=== PATIENT | female | born 1995 | race Caucasian/White ===

== ENCOUNTER 2021-03-09 12:54 | Emergency (ER) | payer BC ==
[~2021-03-09] VITALS: Ht 180.3 cm; Wt 120.4 kg
[2021-03-09] MEDS ORDERED: oxyCODONE IR 5 MG TABLET PO ONE (13:45)
--- NOTE | 2021-03-09 15:19 | RAD ---
MR LUMBAR SPINE WO [id number] Date: 03/09/2021 1:54 PM Indication: back pain, urinary incontinence, r/o cauda equina Comparison: None. Technique: Multi-planar multi-weighted magnetic resonance imaging of the lumbar spine was performed w ithout intravenous contrast using the standard lumbar spine protocol. FINDINGS: The lumbar spine is normally aligned. No acute fracture. Mild multilevel degenerative disc desiccatio n and disc height loss. Bone marrow signal intensity is normal. The conus terminates at a normal level. No abnormal signal is seen within the visualized distal spina l cord. No clumping of intrathecal nerve roots. No soft tissue abnormality in the visualized abdomen or pelvis. T12-L1: No disc bulge. No facet arthropathy. No significant spinal stenosis or neural foraminal narro wing. L1-L2: No disc bulge. No facet arthropathy. No significant spinal stenosis or neural foraminal narrow ing. L2-L3: Disc bulge with annular tear. Mild facet arthropathy. No significant spinal stenosis or neural foraminal narrowing. L3-L4: Disc bulge. Mild facet arthropathy. No significant spinal stenosis or neural foraminal narrowi ng. L4-L5: Disc bulge with annular tear. Mild facet arthropathy. No significant spinal stenosis or neural foraminal narrowing. L5-S1: Disc bulge with annular tear and right paracentral protrusion which moderately narrows the rig ht lateral recess and displaces the descending right S1 nerve root. Mild facet arthropathy. Mild spin al stenosis. Mild bilateral neural foraminal narrowing. IMPRESSION: Lumbar spondylosis, worst at L5-S1 where a disc protrusion narrows the right lateral recess and displ aces the right S1 nerve root. No severe spinal canal stenosis. Electronically signed by: Dionicio Gruber MD (03/09/2021 3:17 PM) [facility]
--- NOTE | 2021-03-09 15:30 | PHYS DOC ---
Past Medical History Additional Past Medical Histor: fatty liver, PCOD, IBS, chronic back pain Past Surgical History: Other Additional Past Surgical Histo: EGD, colonoscopy, myringotomy Smoking Status: Never Smoker Alcohol Use: Rarely General Adult EDM: Chief Complaint: BACK PAIN - NO INJURY HPI: HPI: Patient is a 25 year old female with history of chronic back pain who presents with acute on chronic worsening of her back pain yesterday that started while she was walking. Radiates down the right leg. Associated with numbness sensation. Worsened throughout the day and then last night began having episodes of urinary incontinence. Has had several episodes since this started. Denies fever/chills, no steroids or immunosuppression, no IVDU, no previous history of back surgery. She does feel that her right leg is subjectively weaker than her left since the pain worsened. No bowel incontinence or retention. No saddle anesthesia. Review of Systems: Review of Systems: Constitutional: Denies fever or chills. [] Eyes: Denies change in visual acuity. [] HENT: Denies nasal congestion or sore throat. [] Respiratory: Denies cough or shortness of breath. [] Cardiovascular: Denies chest pain or edema. [] GI: Denies abdominal pain, nausea, vomiting, bloody stools or diarrhea. [] : Denies dysuria. Reports urinary incontinence [] Musculoskeletal: Reports back pain Integument: Denies rash. [] Neurologic: Denies headache, focal weakness or sensory changes. [] Endocrine: Denies polyuria or polydipsia. [] Lymphatic: Denies swollen glands. [] Psychiatric: Denies depression or anxiety. [] Heart Score: C/O Chest Pain: No Current Medications: Current Medications Medications (Trade) Dose Ordered Sig/Monie Start Time Stop Time Status Last Admin Dose Admin Oxycodone HCl (Roxicodone) 5 mg 1X ONCE 03/09/21 13:45 03/09/21 13:46 DC 03/09/21 13:45 5 MG Allergies: Allergies: Allergies Coded Allergies Type Severity Reaction Last Updated Verified No Known Drug Allergies 03/09/21 No Physical Exam: PE: Constitutional: Well developed, well nourished, no acute distress, non-toxic appearance. [] HENT: Normocephalic, atraumatic, bilateral external ears normal, oropharynx moist, no oral exudates, nose normal. [] Eyes: PERRLA, EOMI, conjunctiva normal, no discharge. [] Neck: Normal range of motion, no tenderness, supple, no stridor. [] Cardiovascular:Heart rate regular rhythm, no murmur [] Lungs & Thorax: Bilateral breath sounds clear to auscultation [] Abdomen: Bowel sounds normal, soft, no tenderness, no masses, no pulsatile masses. [] Skin: Warm, dry, no erythema, no rash. [] Back: No tenderness, no CVA tenderness. [] Extremities: No tenderness, no cyanosis, no clubbing, ROM intact, no edema. [] Neurologic: Alert and oriented X 3, normal motor function, normal sensory function, no focal deficits noted. [] Specifically 5/5 strength in: Left hip flexion, hip adduction, knee flexion/extension, plantar flexion/dorsiflexion of the ankle, and dorsiflexion of the great toe. 4+/5 strength (although I expect some limitation due to pain) in right hip flexion, hip adduction, knee flexion/extension, plantar flexion/dorsiflexion of the ankle, and dorsiflexion of the great toe. Rectal tone intact. Psychologic: Affect normal, judgement normal, mood normal. [] Current Patient Data: Labs: Laboratory Tests Test 03/09/21 13:15 POC Urine HCG, Qualitative Hcg negative (Negative) Vital Signs: Vital Signs Date Time Temp Pulse Resp B/P (MAP) Pulse Ox O2 Delivery O2 Flow Rate FiO2 03/09/21 13:45 20 97 Room Air 03/09/21 13:42 75 152/99 (116) 03/09/21 13:10 98.3 98.3 EKG: EKG: [] Radiology/Procedures: Radiology/Procedures: [] Impression: [facility] [address] [place] [address] IMAGING REPORT Signed PATIENT: VALDEMAR TOBAR ACCOUNT: [id number] : 1995 LOCATION: ER AGE: 25 SEX: F EXAM STATUS: REG ER ORD. PHYSICIAN: ANDER HOLMAN MD REASON: back pain, urinary incontinence, r/o cauda equina PROCEDURE: LUMBAR SPINE WO CONTRAST MR LUMBAR SPINE WO -[id number] Date: 03/09/2021 1:54 PM Indication: back pain, urinary incontinence, r/o cauda equina Comparison: None. Technique: Multi-planar multi-weighted magnetic resonance imaging of the lumbar spine was performed without intravenous contrast using the standard lumbar spine protocol. FINDINGS: The lumbar spine is normally aligned. No acute fracture. Mild multilevel degenerative disc desiccation and disc height loss. Bone marrow signal intensity is normal. The conus terminates at a normal level. No abnormal signal is seen within the visualized distal spinal cord. No clumping of intrathecal nerve roots. No soft tissue abnormality in the visualized abdomen or pelvis. T12-L1: No disc bulge. No facet arthropathy. No significant spinal stenosis or neural foraminal narrowing. L1-L2: No disc bulge. No facet arthropathy. No significant spinal stenosis or ne ural foraminal narrowing. L2-L3: Disc bulge with annular tear. Mild facet arthropathy. No significant spinal stenosis or neural foraminal narrowing. L3-L4: Disc bulge. Mild facet arthropathy. No significant spinal stenosis or neural foraminal narrowing. L4-L5: Disc bulge with annular tear. Mild facet arthropathy. No significant spinal stenosis or neural foraminal narrowing. L5-S1: Disc bulge with annular tear and right paracentral protrusion which moderately narrows the right lateral recess and displaces the descending right S1 nerve root. Mild facet arthropathy. Mild spinal stenosis. Mild bilateral neural foraminal narrowing. IMPRESSION: Lumbar spondylosis, worst at L5-S1 where a disc protrusion narrows the right lateral recess and displaces the right S1 nerve root. No severe spinal canal stenosis. Electronically signed by: Duane Gruber MD (03/09/2021 3:17 PM) [facility] DICTATED and SIGNED BY: DUANE GRUBER MD DATE: 03/09/21 [id number] 0 Course & Med Decision Making: Course & Med Decision Making Pertinent Labs and Imaging studies reviewed. (See chart for details) Patient a 25-year-old female with history of chronic low back pain that presents with acute worsening of her right low back pain with radicular symptoms. Reported urinary incontinence. Strength on the right side was 4+/5 diffusely on examination which I suspect is due to pain rather than a neuro deficit. Rectal tone was intact. Given the urinary incontinence there is concern for potential cauda equina, so MRI of the lumbar spine was obtained. Did show some nerve root compression at S1 on the right which could explain her radicular symptoms. This was due to a disc bulge. Discussed with neurosurgery, who recommends close outpatient follow-up. Will be given a short course of oxycodone in addition to Tylenol and ibuprofen. Dragon Disclaimer: Dragon Disclaimer: This electronic medical record was generated, in whole or in part, using a voice recognition dictation system. Departure Departure Impression: Primary Impression: Lumbar disc disease with radiculopathy Disposition: HOME / SELF CARE / HOMELESS Condition: STABLE Referrals: RAEANN ARMIJO MD (PCP) EMILY THOMAS MD Schedule follow-up appointment with the neurosurgery offices for treatment of your low back pain. Patient Instructions: Back Pain, Adult Additional Instructions: You need to follow-up with the neurosurgery team for consideration of other treatments such as steroid injections. For pain tylenol and ibuprofen are best used on a schedule. Please aslternate between the two. -Tylenol 1000 mg every 6 hours (do not exceed 4000 mg in one day) -Ibuprofen 400 mg every 6 hours. Take with food. Do not take for more than 1 week. For pain not controlled by the above you can take: -Oxycodone 5 mg every 4 hours as needed. This is a narcotic medication and can make you tired and impaired. Do not drive or operate machinery while taking oxycodone. It can also make you consitpated so please consider taking docusate and miralax (as directed by over the counter directions) to prevent constipation. Please try to take as little oxycodone as possible and wean yourself off as soon as you are able because it is an addictive medication. Scripts Oxycodone HCl (Oxycodone HCl) 5 Mg Tablet 5 MG PO PRN Q4-6HRS PRN for PAIN for 3 Days, #15 TAB 0 Refills Prov: ANDER HOLMAN MD 03/09/21 ANDER HOLMAN MD Mar 09, 2021 15:30
[2021-03-09] MEDS ORDERED: OXYC5TAB2 PO (16:00)
[2021-03-09 16:16] VITALS: BP 147/86
[2021-04-02] MEDS ORDERED: METF500T16 PO (13:53)
[2021-04-02] MEDS ORDERED: METO50TA4 PO (13:53)
[2021-04-02] MEDS ORDERED: BUPR300T92 PO (13:53)
[2021-04-02] MEDS ORDERED: CYCL10TA19 PO (13:53)
[2021-04-02] MEDS ORDERED: SPIR100T4 PO (13:53)
== END 2021-03-09 16:21 | disposition home or self-care (01) ==
LOC: ER 12:54
DX: M47.27 Other spondylosis with radiculopathy, lumbosacral region (principal); G89.29 Other chronic pain; K58.9 Irritable bowel syndrome, unspecified
CPT/HCPCS: 72148; 81025; 99284

== ENCOUNTER → 2021-04-02 | Outpatient (CLI) | payer BC ==
[2021-03-09 16:16] VITALS: BP 147/86
[~2021-04-02] MED LIST: BUPR300T92 PO; CYCL10TA19 PO; METF500T16 PO; METO50TA4 PO; OXYC5TAB2 PO; SPIR100T4 PO
--- NOTE | 2021-04-02 16:43 | PDOC1 ---
INITIAL PAIN CONSULT DATE OF SERVICE: DOS: DATE: 04/02/21 TIME: 16:36 CHIEF COMPLAINT: Chief Complaint: Low back and right lower extremity pain HISTORY OF PRESENT ILLNESS: 25-year-old female presents history of pain low back right lower extremity for approximately 1 month, not the result of any specific injury or accident that she is aware of, but getting worse with time and with standing weightbearing walking changing positions is been awakened from sleep at least 2-4 times a night patient reports it can affect her bowel bladder control no incontinence but significant increase in frequency and urgency. Patient reports it does affect her ability to walk to have difficulty changing positions standing getting up from a seated position patient reports the pain is in the low back right lower extremity posterior gluteus lateral thigh posterior calf posterior lower leg. Patient reports that sharp and stabbing radiating the leg changes during the day worse with activity better with sitting or laying down patient is done physical therapy also chiropractic treatment she is currently doing the stretching exercises as well from the chiropractor also has tried oxycodone as well as taking ibuprofen both which of these do help she tried cyclobenzaprine as well which has not been helpful. Patient reports her disability rating 0-10 10 being the worst, it is 5 within the home was possibilities 9 with recreation 10 with social activity occupation 7 with self-care and/support activities. Patient had an MRI scan lumbar spine showing L5-S1 disc bulge with annular tear and right paracentral protrusion which moderately narrows the right lateral recess and displaces the descending right S1 nerve root. Patient reports significant fatigability the right lower extremity but no overt motor loss. PAST MEDICAL HISTORY: PMH: Hypertension, hearing loss PREVIOUS SURGERIES: Past Surgical Hx: Ear tubes CURRENT MEDICATIONS: Current Meds: Active Scripts Medications Dose Route/Sig Max Daily Dose Days Date Category Metformin Hcl 500 Mg Tablet 500 Mg PO DAILY 04/02/21 Reported Bupropion Xl (Bupropion Hcl) 300 Mg Tab.er.24h 1 Tab PO DAILYWBKFT 04/02/21 Reported Spironolactone 100 Mg Tablet 1 Tab PO DAILY 04/02/21 Reported Toprol XL (Metoprolol Succinate) 50 Mg Tab.er.24h 50 Mg PO DAILY 04/02/21 Reported Cyclobenzaprine Hcl 10 Mg Tablet 1 Tab PO QHS 04/02/21 Reported Oxycodone HCl 5 Mg Tablet 5 Mg PO PRN Q4-6HRS PRN 3 03/09/21 Rx ALLERGIES; Allergies: Coded Allergies: No Known Drug Allergies (Unverified , 03/09/21) FAMILY HISTORY: Family Hx: Arthritis SOCIAL HISTORY: Social Hx: Patient is alcohol very rarely does not use any illegal illicit recreational drugs does not smoke is single lives locally has 1 nephew living with her and 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 REVIEW OF SYSTEMS: ROS: Positive for those items mentioned in history of present illness, all systems are reviewed, otherwise negative ,and are complete full and well-documented on patient's chart. PHYSICAL EXAM: VS: Blood pressure is 144/94 pulse 80 respirations 18 temperature 98.0 F height is 5 feet 10 inches weight is 270 pounds PE: PHYSICAL EXAMINATION: GENERAL: The patient is awake, alert, oriented, appropriate, very pleasant in demeanor HEENT: Shows normocephalic, atraumatic. Extraocular movements are intact and symmetrical. Oral cavity: Mucous membranes moist and pink. Dentition is intact. NECK: Shows anterior throat supple without palpable lymphadenopathy noted. Swallow reflex symmetrical. CHEST: Shows normal on inspection. Breath sounds are clear bilaterally, distant but no rales or rhonchi. HEART: Shows S1, S2 clear. No murmurs auscultated. ABDOMEN: Soft, nontender, nondistended, obese. No palpable organomegaly is noted. BACK: Shows spine grossly in the midline. Normal-appearing cervical lordotic curvature. There is slightly increased thoracic kyphosis, some minor flattening of the lumbar lordotic curvature. Lumbar paraspinous muscles show symmetrical on inspection, on palpation shows some moderate tenderness diffusely throughout the upper, middle and lower distribution of the paraspinous muscles bilaterally and also into the lower thoracic paraspinous musculature, firm and tender, but without specific trigger points, without radiation of pain. The patient has good rotational motion of the lumbar spine, both laterally as well as extension and flexion without significant difficulty. No tenderness over the spinous processes, sacrum or sacroiliac regions. EXTREMITIES: Lower extremities show deep tendon reflexes 2+ in the patellar and 0 in the right tendo calcaneus tendon. Motor exam is 4 on a scale of 5 with right dorsiflexion, extension, quadriceps and hamstring flexion and 5/5 on the left. Peripheral pulses are 1+ posterior tibial. No peripheral edema is noted bilaterally. Lower extremities are warm and dry to touch, equal in color and appearance. Straight leg raise noted to be positive on the right about 35 degrees, left side is negative. Gaenslen's and Kasi's maneuvers are negative bilaterally. The patient is able to stand, stand on her toes that significant difficulty or loss of balance, walks with a slight favoring gait does appear to favor the right lower extremity over the left not use any assistive device such as canes or walkers to ambulate. SKIN: Shows warm and dry, good turgor. No edema. No sores, rashes or bruising throughout. IMPRESSION: Impression: 25-year-old female with 1 month history increasing pain low back right lower extremity in a radicular fashion following an L5-S1 dermatomal distribution. MRI scan lumbar spine as noted Status post chiropractic treatment with exercises currently ongoing without significant reduction in pain Current analgesics and anti-inflammatories without significant long-term reduction in pain as well. Hypertension Plan: Options were discussed with the patient including conservative medical ma nagement continued physical therapies and exercises and interventional techniques. Patient would like to pursue interventional techniques. We discussed a lumbar epidural steroid injection using description as well as anatomical models to describe the procedure. Patient will wait for preauthorization with her insurance provider, once approved we will plan on translaminar approach L4-5 S1 level lumbar epidural steroid injection with fluoroscopic guidance. In the meantime, patient will continue with stretching strength exercises on her own as well as oral analgesics and anti-inflammatories as currently. OMER QUINTEROS MD Apr 02, 2021 16:43
== END | disposition home or self-care (01) ==
LOC: PNCL 13:20
PROVIDERS: ATTEND Anesthesiology
DX: M54.17 Radiculopathy, lumbosacral region (principal); G89.29 Other chronic pain; I10 Essential (primary) hypertension; Z98.890 Other specified postprocedural states; Z79.899 Other long term (current) drug therapy
CPT/HCPCS: G0463

== ENCOUNTER → 2021-04-16 | Outpatient (CLI) | payer BC ==
[~2021-04-16] MED LIST changes: +IOHEXOL 180 MG/ML 10 ML VIAL. ONE; +methylPREDNISolone ACETATE 40 MG/ML VIAL. ONE; +methylPREDNISolone ACETATE 80 MG/ML VIAL. ONE
--- NOTE | 2021-04-16 14:02 | PDOC ---
Progress Note - Pain Clinic Date of Service: DOS: DATE: 04/16/21 TIME: 14:00 Diagnosis: Dx: Lumbar radiculopathy with lumbar degenerative disease and lumbar spinal stenosis History or Present Illness: HPI: 25-year-old female returns for follow-up status post evaluation and complains of low back and right lower extremity pain patient reports no significant pain in the right lower extremity posterior gluteus posterior thigh on the right side rated a 7 on scale 10 is worse over the past week for an average to its least is a 4 today patient reports is aching and sharp at times in the back constant aching shooting in the right lower extremity with activity patient reports is better with sitting or lying down better with sleeping does not awaken her from sleep most nights. Patient reports no bowel or bladder incontinence currently. Patient reports significant fatigability the right lower extremity with activity specially standing or standing 1 position. Physical Exam: VS: Blood pressure is 122/70 pulse 59 respirations 18 temperature 98.6 patient has 5 feet 10 inches weight 274 pounds. PE: PHYSICAL EXAMINATION: GENERAL: The patient is awake, alert, oriented, appropriate, very pleasant in demeanor HEENT: Shows normocephalic, atraumatic. Extraocular movements are intact and symmetrical. Oral cavity: Mucous membranes moist and pink. Dentition is inta ct. NECK: Shows anterior throat supple without palpable lymphadenopathy noted. Swallow reflex symmetrical. CHEST: Shows normal on inspection. Breath sounds are clear bilaterally, no rales or rhonchi. HEART: Shows S1, S2 clear. No murmurs auscultated. ABDOMEN: Soft, nontender, nondistended. No palpable organomegaly is noted. BACK: Shows spine grossly in the midline. Normal-appearing cervical lordotic curvature. There is increased thoracic kyphosis, some flattening of the lumbar lordotic curvature. Lumbar paraspinous muscles show symmetrical on inspection, on palpation shows some moderate tenderness diffusely throughout the upper, middle and lower distribution of the paraspinous muscles without specific trigger points, without radiation of pain. The patient has good rotational motion of the lumbar spine, both laterally as well as extension and flexion without significant difficulty. EXTREMITIES: Lower extremities show deep tendon reflexes 2+ in the patellar and tendo calcaneus tendons. Motor exam is 4 on a scale of 5 with right dorsiflexion, extension, quadriceps and hamstring flexion and 5/5 on the left. Peripheral pulses are 1+ posterior tibial. No peripheral edema is noted bilaterally. Lower extremities are warm and dry to touch, equal in color and appearance. SKIN: Shows warm and dry, good turgor. No edema. No sores, rashes or bruising throughout. Procedure: Procedure: Options discussed with patient. Patient chart was reviewed as her current medication regimen updated current view of systems updated today as well. We will proceed with a lumbar epidural steroid injection today with fluoroscopic guidance. Risks were discussed including but not limited to: Bleeding, infection, possibility of epidural hematoma and subsequent neurological compromise, dural puncture, headaches, spinal cord and/or nerve damage, side effects of steroid medication, and poor results regarding pain control. Patient understands and wished to proceed. Patient will return to clinic in approximate 2 weeks for follow-up, was counseled as return appointment, activity level, and side effects to be aware of. Medication Injected: Med Injected: Procedure is lumbar epidural steroid injection under local anesthetic using sterile prep and drape at the L5-S1 level using C-arm fluoroscopic guidance in both AP and lateral views medications injected is 120 mg Depo-Medrol +10mL preservative-free normal saline and 2 mL contrast- condition at discharge is stable patient tolerated procedure well had no complications. Condition at Discharge: Condition at Discharge: Condition at discharge stable, paced tolerated procedure well and had no complications. OMER QUINTEROS MD Apr 16, 2021 14:02
--- NOTE | 2021-04-16 14:03 | PDOC4 ---
Procedure Note: ICD 10 Code: ICD 10 Code: M54.17 M51.87 M4 8.07 Procedure Note: Patient was examined for lumbar epidural steroid injection with fluoroscopic guidance. Risks were discussed including but not limited to: Bleeding, infection, possibility of epidural hematoma and subsequent neurological compromise, dural puncture, headaches, spinal cord and/or nerve damage, side effects of steroid medication, and poor results regarding pain control. Patient understands and wished to proceed. Procedure is lumbar epidural steroid injection under local anesthetic using ster ile prep and drape at the L5-S1 level using C-arm fluoroscopic guidance in both AP and lateral views medications injected is 120 mg Depo-Medrol +10mL preservative-free normal saline and 2 mL contrast- condition at discharge is stable patient tolerated procedure well had no complications. OMER QUINTEROS MD Apr 16, 2021 14:03
== END | disposition home or self-care (01) ==
LOC: PNCL 13:13
PROVIDERS: ATTEND Anesthesiology
DX: M51.16 Intervertebral disc disorders with radiculopathy, lumbar region (principal); M48.061 Spinal stenosis, lumbar region without neurogenic claudication; Z79.899 Other long term (current) drug therapy; Z72.89 Other problems related to lifestyle
CPT/HCPCS: 62323; J1030; J1040; Q9965

== ENCOUNTER → 2021-04-30 | Outpatient (CLI) | payer BC ==
[~2021-04-30] MED LIST changes: -IOHEXOL 180 MG/ML 10 ML VIAL. ONE; -methylPREDNISolone ACETATE 40 MG/ML VIAL. ONE; -methylPREDNISolone ACETATE 80 MG/ML VIAL. ONE
--- NOTE | 2021-04-30 11:55 | PDOC ---
Progress Note - Pain Clinic Date of Service: DOS: DATE: 04/30/21 TIME: 11:53 Diagnosis: Dx: Lumbar radiculopathy with lumbar degenerative disc disease History or Present Illness: HPI: 25-year-old female via telemedicine visit today with identity verified with full date of as well as full name, total time spent 14 minutes Patient reports significant improvement after lumbar epidural steroid injection about 80% improvement in the low back and right lower extremity patient reports still some pain in the low back right lower extremity posterior gluteus posterior thigh posterior calf but much improved she is increasing her activity greater ease and comfort walking greater distances doing household activities travel with greater ease sleeping better at night. Patient reports her pain is beginning to return now but only slightly in the low back and the right leg following an L5-S1 dermatomal distribution. Patient reports worse with walking standing changing positions but is doing all these activities with much greater ease and is very pleased with her progress thus far. Patient reports no bowel or bladder incontinence no new motor or sensory deficits. As patient is doing much better continue with stretching strength exercises and exercise daily and 80% improved but still with radicular pain following an L5-S1 dermatomal distribution by her description, we will preauthorize patient for second lumbar epidural steroid injection with fluoroscopic guidance. In the meantime, patient continue with stretching strength exercises walking daily as well as oral analgesics as currently. OMER QUINTEROS MD Apr 30, 2021 11:55
--- NOTE | 2021-04-30 12:18 | NUR ---
Patient called requesting a phone visit with Dr Lorenzo, States she currently has the COVID. Denies any new medications, Allergies,or constipation. States she needs to be authorized for her next injection. Call transferred to Dr Lorenzo. Will get auth for new injection. Patient states that the last shot helped 80% but is starting to come back. Call transferred to Dr Lorenzo.
== END | disposition home or self-care (01) ==
LOC: PNCL 11:45
PROVIDERS: ATTEND Anesthesiology
DX: M51.16 Intervertebral disc disorders with radiculopathy, lumbar region (principal); Z79.899 Other long term (current) drug therapy; Z72.89 Other problems related to lifestyle
CPT/HCPCS: 99212; G0463

== ENCOUNTER 2021-06-30 21:21 | Emergency (ER) | payer BC ==
[~2021-06-30] VITALS: Ht 180.3 cm; Wt 100.0 kg
[2021-07-01 05:45] VITALS: BP 137/81
[2021-07-01 05:56] LABS: BILIRUBIN,URINE NEGATIVE (NEG); CLARITY,URINE CLEAR; COLOR,URINE YELLOW; NITRITE,URINE NEGATIVE (NEG); PH,URINE 5.5 (<5.0-8.0); PROTEIN,URINE NEGATIVE (NEG-TRACE); UROBILINOGEN,URINE 0.2 mg/dL (0.2 mg/dL)
[2021-07-01 06:15] LABS: BACTERIA,URINE 0 /HPF (0-FEW); WBC,URINE OCC /HPF (0-4)
[2021-07-01] MEDS ORDERED: METH4TAB2 PO (06:24)
[2021-07-01] MEDS ORDERED: MELO15TA23 PO (06:24)
[2021-07-01] MEDS ORDERED: CYCL10TA19 PO (06:24)
--- NOTE | 2021-07-01 06:24 | ED.ADGEN ---
Past Medical History Additional Past Medical Histor: FATTY LIVER, POLYCYSTIC OVARY Past Surgical History: Tubal ligation Additional Past Surgical Histo: EGD, colonoscopy, myringotomy Smoking Status: Never Smoker Alcohol Use: Rarely General Adult EDM: Chief Complaint: BACK PAIN - NO INJURY HPI: HPI: Patient is a 25 year old female coming in for right low back pain that started about 5 days ago. Patient states she was going up some stairs when she tripped and fell forward and caught herself with her hands. Had some pain then but has noticed that the pain got worse especially when she woke up in the morning. Denies any bowel or bladder dysfunction. States she has similar pain in the past and negative imaging. Patient denies any paresthesias. States that the pain radiates to her right buttock. Review of Systems: Review of Systems: All other systems within normal limits except for as noted in the HPI Allergies: Allergies: Allergies Coded Allergies Type Severity Reaction Last Updated Verified No Known Drug Allergies 03/09/21 No Physical Exam: PE: Constitutional: Well developed, well nourished, no acute distress, non-toxic appearance. [] HENT: Normocephalic, atraumatic, bilateral external ears normal, nose normal. [] Eyes: PERRLA, conjunctiva normal, no discharge. [] Neck: No rigidity, supple, no stridor. [] Cardiovascular: Regular rate and rhythm, brisk cap refill [] Lungs & Thorax: Non labored symmetric respirations, no tachypnea or respiratory distress [] Abdomen: Soft, nondistended. Skin: Warm, dry, no erythema, no rash. [] Back: Unremarkable, no point tenderness on spine, no step-off or deformity, tenderness over piriformis muscle on right Extremities: No deformities, range of motion grossly intact, no lower extremity edema [] Neurologic: Alert and oriented X 3, no focal deficits noted. [] Psychologic: Affect normal, judgement normal, mood normal. [] Current Patient Data: Labs: Laboratory Tests Test 07/01/21 05:10 07/01/21 05:15 Urine Collection Type Unknown Urine Color Yellow Urine Clarity Clear Urine pH 5.5 (<5.0-8.0) Urine Specific Kamas 1.020 (1.000-1.030) Urine Protein Negative mg/dL (NEG-TRACE) Urine Glucose (UA) Negative mg/dL (NEG) Urine Ketones (Stick) Negative mg/dL (NEG) Urine Blood Large (NEG) Urine Nitrite Negative (NEG) Urine Bilirubin Negative (NEG) Urine Urobilinogen Dipstick 0.2 mg/dL (0.2 mg/dL) Urine Leukocyte Esterase Trace (NEG) Urine RBC 11-20 /HPF (0-2) Urine WBC Occ /HPF (0-4) Urine Squamous Epithelial Cells Few /LPF Urine Bacteria 0 /HPF (0-FEW) Urine Mucus Mod /LPF POC Urine HCG, Qualitative Hcg negative (Negative) Vital Signs: Vital Signs Date Time Temp Pulse Resp B/P (MAP) Pulse Ox O2 Delivery O2 Flow Rate FiO2 07/01/21 04:56 98.0 78 16 137/76 (96) 95 98.0 07/01/21 04:25 Room Air EKG: EKG: [] Heart Score: C/O Chest Pain: No Risk Factors: Risk Factors: DM, Current or recent (<one month) smoker, HTN, HLP, family history of CAD, obesity. Risk Scores: Score 0 - 3: 2.5% MACE over next 6 weeks - Discharge Home Score 4 - 6: 20.3% MACE over next 6 weeks - Admit for Clinical Observation Score 7 - 10: 72.7% MACE over next 6 weeks - Early Invasive Strategies Radiology/Procedures: Radiology/Procedures: [] Course & Med Decision Making: Course & Med Decision Making Pertinent Labs and Imaging studies reviewed. (See chart for details) [] Dragon Disclaimer: Dragon Disclaimer: This electronic medical record was generated, in whole or in part, using a voice recognition dictation system. Departure Departure Impression: Primary Impression: Low back pain Disposition: HOME / SELF CARE / HOMELESS Condition: STABLE Referrals: RAEANN ARMIJO MD (PCP) Patient Instructions: Back Pain, Adult Scripts Cyclobenzaprine Hcl (CYCLOBENZAPRINE HCL) 10 Mg Tablet 1 TAB PO TID PRN for MUSCLE SPASMS for 5 Days, #15 TAB Prov: JUDITH VALVERDE MD 07/01/21 Methylprednisolone (MEDROL) 4 Mg Tab.ds.pk 1 PKG PO UD for inflammation, #1 PKG Prov: JUDITH VALVERDE MD 07/01/21 Meloxicam (MELOXICAM) 15 Mg Tablet 1 TAB PO DAILY PRN for PAIN for 10 Days, #10 TAB 0 Refills Prov: JUDITH VALVERDE MD 07/01/21 JUDITH VALVERDE MD Jul 01, 2021 06:24
[2021-07-01] MEDS ORDERED: KETOROLAC 60 MG/2 ML VIAL. IM ONE (07:00)
[2021-07-01] MEDS ORDERED: ORPHENADRINE CITRATE 60 MG/2 ML VIAL. IM ONE (07:00)
== END 2021-07-01 06:47 | disposition home or self-care (01) ==
LOC: ER 21:21
DX: M54.50 Low back pain, unspecified (principal); Z98.51 Tubal ligation status
CPT/HCPCS: 81001; 81025; 87086; 96372; 99285; J1885; J2360

== ENCOUNTER → 2021-08-05 | Outpatient (CLI) | payer BC ==
[~2021-08-05] MED LIST changes: +ESOM40CA PO; +MELO15TA23 PO; +METH4TAB2 PO
[2021-08-05 13:08] LABS: BASO % 1 % (0-3); EOS # 0.3 x10^3/uL (0.0-0.7); EOS % 4 % (0-3); HEMATOCRIT 37.1 % (36.0-47.0); HEMOGLOBIN 12.2 g/dL (12.0-15.5); LYMPH # 1.4 x10^3/uL (1.0-4.8); LYMPH % 23 % (24-48); MEAN CORPUSCULAR HEMOGLOBIN 27 pg (25-35); MEAN CORPUSCULAR HGB CONC 33 g/dL (31-37); MEAN CORPUSCULAR VOLUME 83 fL (79-100); MONO # 0.3 x10^3/uL (0.0-1.1); MONO % 4 % (0-9); NEUT # 4.4 x10^3/uL (1.8-7.7); NEUT % 69 % (31-73); PLATELET COUNT 169 x10^3/uL (140-400); RED BLOOD COUNT 4.45 x10^6/uL (3.50-5.40); RED CELL DISTRIBUTION WIDTH 14.8 % (11.5-14.5); WHITE BLOOD COUNT 6.4 x10^3/uL (4.0-11.0)
--- NOTE | 2021-08-05 13:11 | EKG ---
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
[2021-08-05 13:24] LABS: ALBUMIN 3.8 g/dL (3.4-5.0); CREATININE 0.8 mg/dL (0.6-1.0); GFR 87.4; POTASSIUM 3.7 mmol/L (3.5-5.1); TOTAL BILIRUBIN 0.5 mg/dL (0.2-1.0); TOTAL PROTEIN 7.7 g/dL (6.4-8.2)
== END ==
LOC: SURGPAT 12:36
PROVIDERS: ATTEND Neurological Surgery
DX: Z01.818 Encounter for other preprocedural examination (principal); M51.17 Intervertebral disc disorders with radiculopathy, lumbosacral region
CPT/HCPCS: 36415; 80053; 85025; 87641; 93005

== ENCOUNTER → 2021-08-11 | Outpatient (CLI) | payer BC ==
[~2021-08-11] MED LIST changes: +DOCU-109 PO; +HYDR-2761 PO
== END ==
LOC: LAB 13:57
PROVIDERS: ATTEND Neurological Surgery
DX: Z01.812 Encounter for preprocedural laboratory examination (principal); Z20.822 Contact with and (suspected) exposure to COVID-19
CPT/HCPCS: U0003

== ENCOUNTER 2021-08-13 10:12 | Day surgery (SDC) | payer BC ==
[2021-08-05 12:55] VITALS: BP 119/70
--- NOTE | 2021-08-12 11:11 | PREOP HP ---
DATE OF SERVICE: 08/13/2021 HISTORY OF PRESENT ILLNESS: The patient is a pleasant 25-year-old who is having difficulty with low back pain and right hip and buttock pain. She was referred for lumbar epidural steroid injections. She said the injection helped her some, but not significantly. She was improving, but then she tripped and fell around Nevarez's Day, which increased her symptoms markedly. She says her pain is 4/10 now and is 8/10 with standing and activity. The pain is in her lower back and radiates to her right hip and buttock. Activities such as working steadily increases her pain. Lying down flat helps. Ibuprofen helps. She has been to the emergency room and was given steroids as well as Flexeril. She has been through physical therapy as well as chiropractic treatment in addition to epidural steroid injections. 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 She is currently off work. CURRENT MEDICATIONS: Metformin, bupropion, spironolactone, metoprolol, Flexeril, ibuprofen. PAST MEDICAL HISTORY: Liver disease, hypertension, murmur. FAMILY HISTORY: Cancer, diabetes, heart disease, hypertension, RI, headaches, spine problems. SOCIAL HISTORY: Single. Nonsmoker. Drinks alcohol 1-2 times per year. ALLERGIES: No known drug allergies. REVIEW OF SYSTEMS: A 12-point review of systems was performed and is noncontributory except that mentioned above. PHYSICAL EXAMINATION: GENERAL: Alert, pleasant, in no acute distress. HEENT: Head is normocephalic, atraumatic. SKIN: Warm and dry. MUSCULOSKELETAL: Lumbar paraspinal muscle bulk is normal, restricted range of motion of the lumbar spine, [id number] tenderness of the lower lumbar spine with palpation, normal range of motion of the lower extremities bilaterally. EXTREMITIES: No clubbing, cyanosis or edema. NEUROLOGIC: Alert and oriented x3. Strength is 5/5 in the lower extremities bilaterally. Sensory was intact to light touch in the lower extremities bilaterally. Reflexes were present and symmetric in the lower extremities bilaterally, markedly positive straight leg raising on the right, relieved by Lasegue's maneuver, negative straight leg raising on the left, normal gait. IMAGING: I reviewed her lumbar MRI scan. On that study at L5-S1, there is a right paracentral disc protrusion, which moderately displaces the right S1 nerve root. ASSESSMENT AND PLAN: She has a herniated lumbar disc with a right lumbar radiculopathy and she has not improved with significant conservative measures and time. I have recommended lumbar microsurgery. I spoke with her about the surgery, the risk and the expected postoperative course. She understands and would like to proceed. BHASKAR DR: Eliud TID: [id number] KEITH
[~2021-08-13] VITALS: Ht 174 cm; Wt 128.8 kg
[~2021-08-13 10:12] MED LIST changes: +0.9 % SODIUM CHLORIDE 20 ML VIAL. IJ ONE; +DEXAMETHASONE SOD PHOS 4 MG/ML VIAL ONE; -DOCU-109 PO; -HYDR-2761 PO; +HYDROmorphone 2 MG/ML INJ. IVP PRN; +IV RINGERS,LACTATED 1000ML 1,000 ML IV SCH; +LIDOCAINE 2% PF 5 ML VIAL. ONE; +MORPHINE SULFATE 2 MG/ML INJ. IVP PRN; +ONDANSETRON PF 4 MG/2 ML VIAL. ONE; +PHENYLEPHRINE 10 MG/ML VIAL. ONE; +PROCHLORPERAZINE 10 MG/2 ML VIAL. IVP PRN; +PROPOFOL 0 ML IV ONE; +PROPOFOL 10 MG/ML (20ML) VIAL. IV ONE; +REMIFENTANIL 1 MG VIAL. IV ONE; +ROCURONIUM 50 MG/5 ML VIAL. ONE; +ceFAZolin SODIUM 1 GM in IV NORMAL SALINE 1000ML BAG 1,000 ML IRR ONE; +ceFAZolin SODIUM 3 GM in IV DEXTROSE 5% 100ML 100 ML IV PRN; +fentaNYL PF VIAL 100 MCG/2 ML VIAL IVP PRN; +fentaNYL PF VIAL 100 MCG/2 ML VIAL ONE
[2021-08-13 10:43] VITALS: BP 137/87
[2021-08-13] MEDS ORDERED: KETOROLAC 60 MG/2 ML VIAL. ONE (11:08)
[2021-08-13] MEDS ORDERED: THROMBIN TOPICAL 20,000 UNIT SPRAY.SYRN KIT TP ONE (11:08)
[2021-08-13] MEDS ORDERED: BUPIVACAINE-EPI 0.5% 30 ML VIAL KIT. ONE (11:08)
[2021-08-13] MEDS ORDERED: GELATIN SPONGE SIZE 100. ONE (11:08)
[2021-08-13] MEDS ORDERED: fentaNYL PF VIAL 100 MCG/2 ML VIAL ONE ×2 (11:32→15:37)
[2021-08-13] MEDS ORDERED: MIDAZOLAM HCL/PF 2 MG/2 ML VIAL. ONE (12:06)
[2021-08-13] MEDS ORDERED: GLYCOPYRROLATE 1 MG/5 ML VIAL. ONE (12:37)
[2021-08-13] MEDS ORDERED: NEOSTIGMINE METHYLSULFATE 5 MG/5 ML SYRINGE. ONE (12:37)
[2021-08-13] MEDS ORDERED: PROPOFOL 100 ML IV ONE (13:09)
[2021-08-13] MEDS ORDERED: HYDR-2761 PO (14:59)
[2021-08-13] MEDS ORDERED: DOCU-109 PO (14:59)
--- NOTE | 2021-08-13 15:00 | DISCH ---
DISCHARGE INSTRUCTIONS Condition on Discharge Condition on Discharge: Stable Activity After Discharge Activity Instructions for Disc: Activity as tolerated, Avoid exertion Other activity instructions: no driving for a week Bathing Instructions: Shower-keep dressing dry, No Tub Bath until see Lifting Instructions after Dis: No heavy lifting, No pulling or pushing, Do not lift >10 pounds Diet after Discharge Additional Diet Restrictions: resume home diet Wound Incision Care Wound/Incision Care: Ice to area for comfort Other wound/incision instructi: may remove dressing in 48 hours if dry, no soaking Contacting the after DC Call your doctor for: Concerns you may have Follow-Up Follow up with: Dr. Thomas's nurse in 2 weeks [phone] EMILY THOMAS MD Aug 13, 2021 15:00
--- NOTE | 2021-08-13 15:27 | OP ---
DATE OF SURGERY: 08/13/2021 PREOPERATIVE DIAGNOSIS: Herniated lumbar disc, L5-S1 right with right lumbar radiculopathy. POSTOPERATIVE DIAGNOSIS: Herniated lumbar disc, L5-S1 right with right lumbar radiculopathy. OPERATION PERFORMED: Hemilaminotomy and microdiscectomy at L5-S1, right. The operation was done with EMG monitoring, SSEP monitoring, fluoroscopy, microscopic dissection. SURGEON: Ronald Lundberg M.D. MICROBIOLOGY QUALITY CONTROL TECHNICIAN: NO Maddox; assisted with the surgery. She assisted with the exposure, the microdiscectomy as well as the closure. OPERATIVE INDICATIONS: The patient is a pleasant 25-year-old who developed severe intractable back and right leg pain, which failed conservative measures. On imaging studies, she had the above-mentioned findings. She failed conservative measures including chiropractic treatment as well as physical therapy. On imaging studies, there was a large right-sided paracentral disc protrusion, which was displacing the right S1 nerve root. I recommended lumbar microsurgery. I spoke with her for a considerable period. I explained the risk of recurrence and infection, operative risks and she understood and wished to go ahead. DESCRIPTION OF PROCEDURE: Following general endotracheal anesthesia, the patient was positioned prone on the Rubio table. The lumbar region prepped and draped in standard fashion. DUNIA hose and AV impulse boots were applied for DVT prophylaxis. The microscope was draped, fluoroscopy was draped and brought to field. Monitoring was established. Ancef 3 grams was given less than one hour prior to initiation of surgery. Using fluoroscopic guidance, incision was made directly over the L5-S1 interspace. I dissected down through the skin and subcutaneous tissue, reflected the paraspinal muscles, placed a Campton microdisk retractor, brought in the microscope. Using a high speed air drill with microscopic technique, I burred down a hemilaminotomy. I trimmed away ligamentum flavum. I performed a partial foraminotomy. I gently retracted the root medially. There was a large subligamentous disc fragment and I incised the ligament with an arachnoid knife and then used pituitaries to gently perform a discectomy and remove several large fragments, which markedly decompressed the entire region. I entered into the disc space and performed a generous discectomy in that location and as I worked, the area became very well decompressed. I irrigated copiously with antibiotic solution. I explored carefully. The herniated disc was removed and the nerve was quite free. I did perform partial foraminotomy. I irrigated with antibiotic solution. Hemostasis was excellent. I did use a bipolar cautery judiciously as well as bone wax during the case to maintain excellent hemostasis. After irrigation, then I removed the retractor, obtained hemostasis in the muscle and closed the wound in layers with absorbable suture. The skin was closed with 4-0 subcuticular stitch. I felt the surgery went very well. PRISCILLA DR: Darcy TID: [id number] KEITH
[2021-08-13 16:08] VITALS: BP 122/70
[2021-08-13] MEDS ORDERED: HYDROcodone/APAP 5/325MG 1 TAB TABLET PO ONE (16:15)
--- NOTE | 2021-08-15 15:33 | PATHOLOGY ---
[facility] Accession Number: [id number] . 01 Material submitted: . vertebral column - LUMBAR DISC AND DECOMPRESSION. Modifiers: L5-S1 . 01 Clinical history: . LUMBAR HERNIATED DISC WITH RADICULOPATHY . 02 Diagnosis: Segments of fibrocartilaginous, fibroadipose and skeletal muscle tissue and bone, lumbar disc and decompression: - Degenerative changes of fibrocartilaginous tissue. (JPM:apolinar; 08/15/2021) MBR 08/15/2021 1342 Local . 02 Comment: There is no evidence of an acute inflammatory process or malignancy. (JPM:apolinar; 08/15/2021) . 02 Electronically signed: . En Sepulveda MD, Pathologist NPI- [id number] . 01 Gross description: . The specimen is received in formalin, labeled "Patricia Reyes, lumbar disc and decompression". The source is further designated in the operative procedure as "L5-S1". Received are multiple segments of pale mendoza fibrous tissue admixed with gritty fragments of bone measuring 4.8 x 4.4 x 0.5 cm in aggregate dimensions. The specimen is submitted representatively in cassette A1, following light decalcification. (CAA; 08/14/2021) QAC/QAC 08/14/2021 1512 Local . 02 Pathologist provided ICD-10: M51.26, M54.10 . 02 CPT . 780153, 829670 Specimen Comment: A courtesy copy of this report has been sent to [phone], [phone] Specimen Comment: [id number] Specimen Comment: Report sent to / DR ARMIJO Specimen Comment: A duplicate report has been generated due to demographic updates. Performed at: 01 [facility] [address] [facility] [address], [place] [id number] MD Stevo Montague MD Phone: [phone] Performed at: 02 [facility] [address] [place], [place] [id number] MD En Sepulveda MD Phone: [phone]
== END 2021-08-13 17:00 | disposition home or self-care (01) ==
LOC: SURG 10:12
PROVIDERS: ATTEND Neurological Surgery
DX: M51.16 Intervertebral disc disorders with radiculopathy, lumbar region (principal); M51.17 Intervertebral disc disorders with radiculopathy, lumbosacral region; I10 Essential (primary) hypertension; J45.909 Unspecified asthma, uncomplicated; E66.9 Obesity, unspecified; F41.9 Anxiety disorder, unspecified; F32.9 Major depressive disorder, single episode, unspecified; Z79.84 Long term (current) use of oral hypoglycemic drugs; Z79.899 Other long term (current) drug therapy; Z98.890 Other specified postprocedural states; Z72.89 Other problems related to lifestyle; Z82.49 Family history of ischemic heart disease and other diseases of the circulatory system; Z83.3 Family history of diabetes mellitus; Z91.040 Latex allergy status
CPT/HCPCS: 63030; 81025; 88304; 88311; 97116; 97162; 97530; A4364; A4930; A6254; A6258; J0690; J1100; J1885; J2250; J2370; J2405; J2704; J2710; J3010; J3490; J7030; 76000; A4222; A4223